=== PATIENT | male | born 1935 | race Caucasian/White ===

== ENCOUNTER 2017-08-15 15:49 | Inpatient (IN) | payer OTHER ==
[2017-08-15] VITALS (7 sets, daily range): BP systolic 157–204; BP diastolic 68–95
[~2017-08-15] VITALS: Ht 154.9 cm; Wt 63.3 kg
[~2017-08-15 15:49] MED LIST: AMLODIPINE BES2.5 MG PO; ASPIR-LOW81 MG PO; ATORVASTATIN CA10 MG PO; Advair 250/50 Diskus IH; Aspirin E.C. PO; BAYER CHILDREN'81 MG PO; CENTRUM SILVER1 EAC3 PO; CILOSTAZOL100 MG PO; CYANOCOBAL1000 MCG/2 IM; Dulera 200 mcg/5 mcg IH; IMDUR60 MG PO; IRON325 MG PO; LISINOPRIL10 MG PO; LOW DOSE ASPIRI81 M1 PO; LOW DOSE ASPIRI81 M2 PO; Levaquin PO; MECLIZINE HCL12.5 M1 PO; METOPROLOL SUCC25 MG PO; MULTIVITAMIN1 EAC2 PO; NORVASC2.5 MG PO; NORVASC5 MG PO; OMEPRAZOLE20 M2 PO; OMEPRAZOLE40 M1 PO; PRILOSEC OTC20 MG PO; SPIRIVA1 INHALATI IH; SYMBICORT60 INHALAT IH; TEKTURNA300 MG PO; Theragran PO; VITAMIN B12 IM; VITAMIN D31000 UNIT PO; [UNRECOGNIZED DRUG - CODE] IH
[2017-08-15 16:06] LABS: BASOPHIL (%) 0.7 % (0-1); BASOPHIL COUNT 0.1 K/uL (0-0.1); EOSINOPHIL (%) 4.3 % (0-5); EOSINOPHIL COUNT 0.4 K/uL (0-0.3); HEMOGLOBIN 12.8 G/DL (12.5-16.6); IMMATURE GRANULOCYTE (%) 0.6 % (0.0-0.7); LYMPHOCYTE (%) 14.4 % (15-42); LYMPHOCYTE COUNT 1.2 K/uL (1.0-2.8); MCHC 32.8 G/DL (30.0-36.0); MCV 91.5 FL (86-99); MONOCYTE (%) 8.4 % (3-12); MONOCYTE COUNT 0.7 K/uL (0-0.8); NEUTROPHIL (%) 71.6 % (45-76); NEUTROPHIL COUNT 6.1 K/uL (1.8-6.4); PLATELET COUNT 312 K/uL (156-360); RBC DIS.WIDTH-CV 17.2 % (11.8-14.6); RBC DIS.WIDTH-SD 57.6 % (39-53); RED BLOOD COUNT 4.26 M/uL (4.00-5.50); WHITE BLOOD COUNT 8.5 K/uL (4.1-10.2)
[2017-08-15 16:16] LABS: PTT 27.1 SEC (25-37)
[2017-08-15 16:17] LABS: AMYLASE 143 IU/L (1-118); CHLORIDE 104 mEq/L (99-109); POTASSIUM 4.2 mEq/L (3.7-5.4); SODIUM 141 mEq/L (136-147)
[2017-08-15 16:19] LABS: GLUCOSE 100 mg/dL (70-99)
[2017-08-15 16:22] LABS: SERUM ETHYL ALCOHOL < 10 mg/dL
[2017-08-15 16:23] LABS: CREATININE 1.7 mg/dL (0.6-1.3); GFR ESTIMATE (CALCULATED) 41 mL/min/ (58.99-99999)
[2017-08-15 16:24] LABS: UREA NITROGEN (BUN) 19 mg/dL (9-23)
[2017-08-15 16:26] LABS: LIPASE 37 U/L (1.0-51.0)
[2017-08-15 16:27] LABS: TROP-I INTERPRETATION NEGATIVE; TROPONIN-I < 0.01 ng/mL (0.0-0.30)
[2017-08-15] MEDS ORDERED: LIPITOR40 MG PO (19:19)
[2017-08-15] MEDS ORDERED: UNKNOWN INHALER PO (19:19)
[2017-08-15 19:42] LABS: HDL CHOLESTEROL 57 MG/DL (Desirable>=40); LDL CHOLESTEROL 112 mg/dL (Desirable<100); NON-HDL CHOLESTEROL 137 mg/dL (Desirable<160); TOTAL CHOLESTEROL 194 mg/dL (Desirable<200); TRIGLYCERIDES 125 MG/DL (Normal: <150)
[2017-08-15] MEDS ORDERED: RANITIDINE HCL150 M1 PO (21:46)
[2017-08-16] VITALS (23 sets, daily range): BP systolic 111–190; BP diastolic 66–94
[2017-08-16 08:30] LABS: HEMOGLOBIN A1c (GLYCOHEMOGLOB) 5.5 % (Below 5.7)
[2017-08-17] VITALS (16 sets, daily range): BP systolic 144–183; BP diastolic 57–79
[2017-08-17 10:27] LABS: BASOPHIL (%) 0.5 % (0-1); EOSINOPHIL (%) 2.4 % (0-5); EOSINOPHIL COUNT 0.2 K/uL (0-0.3); HEMATOCRIT 30.3 % (38.0-50.0); IMMATURE GRANULOCYTE (%) 0.5 % (0.0-0.7); LYMPHOCYTE (%) 12.7 % (15-42); MCH 29.4 PG (29.0-34.0); MCHC 31.4 G/DL (30.0-36.0); MCV 93.8 FL (86-99); MONOCYTE (%) 11.3 % (3-12); MONOCYTE COUNT 0.9 K/uL (0-0.8); NEUTROPHIL (%) 72.6 % (45-76); NEUTROPHIL COUNT 5.4 K/uL (1.8-6.4); PLATELET COUNT 238 K/uL (156-360); RBC DIS.WIDTH-CV 17.5 % (11.8-14.6); RBC DIS.WIDTH-SD 60.7 % (39-53); WHITE BLOOD COUNT 7.5 K/uL (4.1-10.2)
[2017-08-17 10:28] LABS: HEMOGLOBIN 9.5 G/DL (12.5-16.6); RED BLOOD COUNT 3.23 M/uL (4.00-5.50)
[2017-08-17 10:50] LABS: CHLORIDE 110 MEQ/L (99-109); CREATININE 1.5 MG/DL (0.6-1.3); GFR ESTIMATE (CALCULATED) 48 mL/min/ (58.99-99999); GLUCOSE 106 mg/dL (70-99); MAGNESIUM 1.9 mg/dl (1.3-2.7); PHOSPHORUS 2.9 mg/dL (2.5-4.9); POTASSIUM 3.9 MEQ/L (3.7-5.4); SODIUM 145 MEQ/L (136-147); UREA NITROGEN (BUN) 18 mg/dL (9-23)
[2017-08-18 01:00] VITALS: BP 189/81
[2017-08-18 04:36] VITALS: BP 170/81
[2017-08-18 06:51] LABS: BASOPHIL (%) 0.6 % (0-1); BASOPHIL COUNT 0.1 K/uL (0-0.1); EOSINOPHIL (%) 4.4 % (0-5); EOSINOPHIL COUNT 0.4 K/uL (0-0.3); HEMOGLOBIN 9.6 G/DL (12.5-16.6); IMMATURE GRANULOCYTE (%) 0.8 % (0.0-0.7); LYMPHOCYTE (%) 11.7 % (15-42); MCH 29.1 PG (29.0-34.0); MCV 93.9 FL (86-99); MONOCYTE (%) 13.3 % (3-12); MONOCYTE COUNT 1.2 K/uL (0-0.8); NEUTROPHIL (%) 69.2 % (45-76); PLATELET COUNT 243 K/uL (156-360); RBC DIS.WIDTH-CV 17.4 % (11.8-14.6); RBC DIS.WIDTH-SD 61.1 % (39-53); WHITE BLOOD COUNT 8.6 K/uL (4.1-10.2)
[2017-08-18 07:14] LABS: CHLORIDE 111 MEQ/L (99-109); CREATININE 1.4 MG/DL (0.6-1.3); GFR ESTIMATE (CALCULATED) 52 mL/min/ (58.99-99999); GLUCOSE 93 mg/dL (70-99); POTASSIUM 3.8 MEQ/L (3.7-5.4); SODIUM 143 MEQ/L (136-147); UREA NITROGEN (BUN) 15 mg/dL (9-23)
[2017-08-18 07:38] VITALS: BP 181/76
[2017-08-18 11:30] VITALS: BP 171/76
[2017-08-18 20:02] VITALS: BP 172/80
[2017-08-18 23:50] VITALS: BP 185/88
[2017-08-19 04:41] VITALS: BP 175/77
[2017-08-19 07:28] LABS: BASOPHIL (%) 0.6 % (0-1); BASOPHIL COUNT 0.1 K/uL (0-0.1); EOSINOPHIL (%) 5.2 % (0-5); EOSINOPHIL COUNT 0.6 K/uL (0-0.3); HEMATOCRIT 34.7 % (38.0-50.0); HEMOGLOBIN 11.2 G/DL (12.5-16.6); IMMATURE GRANULOCYTE (%) 0.5 % (0.0-0.7); LYMPHOCYTE (%) 9.6 % (15-42); MCH 29.9 PG (29.0-34.0); MCHC 32.3 G/DL (30.0-36.0); MCV 92.5 FL (86-99); MONOCYTE (%) 11.4 % (3-12); MONOCYTE COUNT 1.2 K/uL (0-0.8); NEUTROPHIL (%) 72.7 % (45-76); NEUTROPHIL COUNT 7.6 K/uL (1.8-6.4); PLATELET COUNT 298 K/uL (156-360); RBC DIS.WIDTH-CV 17.2 % (11.8-14.6); RBC DIS.WIDTH-SD 58.6 % (39-53); RED BLOOD COUNT 3.75 M/uL (4.00-5.50); WHITE BLOOD COUNT 10.5 K/uL (4.1-10.2)
[2017-08-19 07:53] LABS: CHLORIDE 106 MEQ/L (99-109); CREATININE 1.2 MG/DL (0.6-1.3); GFR ESTIMATE (CALCULATED) > 59 mL/min/ (58.99-99999); GLUCOSE 96 mg/dL (70-99); POTASSIUM 3.5 MEQ/L (3.7-5.4); SODIUM 139 MEQ/L (136-147); UREA NITROGEN (BUN) 12 mg/dL (9-23)
[2017-08-19 08:04] VITALS: BP 202/98
[2017-08-19 11:38] VITALS: BP 160/92
[2017-08-19 15:53] VITALS: BP 180/84
[2017-08-19 20:00] VITALS: BP 107/73
[2017-08-19 23:05] VITALS: BP 139/64
[2017-08-20] VITALS: BP 125/86
[2017-08-20 03:42] VITALS: BP 152/79
[2017-08-20 05:00] VITALS: BP 162/72
[2017-08-20 06:40] LABS: BASOPHIL (%) 0.6 % (0-1); BASOPHIL COUNT 0.1 K/uL (0-0.1); EOSINOPHIL (%) 5.1 % (0-5); EOSINOPHIL COUNT 0.4 K/uL (0-0.3); HEMATOCRIT 34.1 % (38.0-50.0); IMMATURE GRANULOCYTE (%) 0.6 % (0.0-0.7); LYMPHOCYTE (%) 12.4 % (15-42); MCHC 32.3 G/DL (30.0-36.0); MONOCYTE (%) 15.8 % (3-12); MONOCYTE COUNT 1.3 K/uL (0-0.8); NEUTROPHIL (%) 65.5 % (45-76); NEUTROPHIL COUNT 5.5 K/uL (1.8-6.4); PLATELET COUNT 315 K/uL (156-360); RBC DIS.WIDTH-CV 17.2 % (11.8-14.6); RED BLOOD COUNT 3.79 M/uL (4.00-5.50); WHITE BLOOD COUNT 8.3 K/uL (4.1-10.2)
[2017-08-20 06:54] LABS: CHLORIDE 100 MEQ/L (99-109); CREATININE 1.3 MG/DL (0.6-1.3); GFR ESTIMATE (CALCULATED) 56 mL/min/ (58.99-99999); GLUCOSE 103 mg/dL (70-99); POTASSIUM 3.3 MEQ/L (3.7-5.4); SODIUM 138 MEQ/L (136-147); UREA NITROGEN (BUN) 14 mg/dL (9-23)
[2017-08-20 07:50] VITALS: BP 106/59
[2017-08-20 11:05] VITALS: BP 175/81
[2017-08-20 19:59] VITALS: BP 160/64
[2017-08-21 00:22] VITALS: BP 151/81
[2017-08-21 03:58] VITALS: BP 168/70
[2017-08-21 06:13] LABS: BASOPHIL (%) 0.8 % (0-1); BASOPHIL COUNT 0.1 K/uL (0-0.1); EOSINOPHIL (%) 9.8 % (0-5); EOSINOPHIL COUNT 0.6 K/uL (0-0.3); HEMATOCRIT 33.2 % (38.0-50.0); HEMOGLOBIN 10.3 G/DL (12.5-16.6); IMMATURE GRANULOCYTE (%) 0.5 % (0.0-0.7); LYMPHOCYTE (%) 16.1 % (15-42); LYMPHOCYTE COUNT 1.1 K/uL (1.0-2.8); MCH 30.6 PG (29.0-34.0); MONOCYTE (%) 12.9 % (3-12); MONOCYTE COUNT 0.8 K/uL (0-0.8); NEUTROPHIL (%) 59.9 % (45-76); NEUTROPHIL COUNT 3.9 K/uL (1.8-6.4); RBC DIS.WIDTH-CV 17.2 % (11.8-14.6); RBC DIS.WIDTH-SD 61.8 % (39-53); RED BLOOD COUNT 3.37 M/uL (4.00-5.50); WHITE BLOOD COUNT 6.5 K/uL (4.1-10.2)
[2017-08-21 06:18] LABS: MCV 98.5 FL (86-99)
[2017-08-21 06:32] LABS: CHLORIDE 103 MEQ/L (99-109); CREATININE 1.3 MG/DL (0.6-1.3); GFR ESTIMATE (CALCULATED) 56 mL/min/ (58.99-99999); GLUCOSE 101 mg/dL (70-99); POTASSIUM 3.2 MEQ/L (3.7-5.4); SODIUM 138 MEQ/L (136-147); UREA NITROGEN (BUN) 14 mg/dL (9-23)
[2017-08-21 08:02] VITALS: BP 164/72
[2017-08-21 12:03] VITALS: BP 143/74
[2017-08-21 16:26] VITALS: BP 177/88
[2017-08-21 19:45] VITALS: BP 162/60
[2017-08-22] VITALS (7 sets, daily range): BP systolic 122–196; BP diastolic 65–91
[2017-08-22 06:48] LABS: BASOPHIL (%) 0.7 % (0-1); BASOPHIL COUNT 0.1 K/uL (0-0.1); EOSINOPHIL (%) 9.3 % (0-5); EOSINOPHIL COUNT 0.7 K/uL (0-0.3); HEMATOCRIT 33.1 % (38.0-50.0); HEMOGLOBIN 11.2 G/DL (12.5-16.6); IMMATURE GRANULOCYTE (%) 0.4 % (0.0-0.7); LYMPHOCYTE (%) 15.5 % (15-42); LYMPHOCYTE COUNT 1.1 K/uL (1.0-2.8); MCH 30.5 PG (29.0-34.0); MCHC 33.8 G/DL (30.0-36.0); MONOCYTE (%) 11.9 % (3-12); MONOCYTE COUNT 0.9 K/uL (0-0.8); NEUTROPHIL (%) 62.2 % (45-76); NEUTROPHIL COUNT 4.5 K/uL (1.8-6.4); PLATELET COUNT 372 K/uL (156-360); RBC DIS.WIDTH-CV 17.4 % (11.8-14.6); RBC DIS.WIDTH-SD 57.1 % (39-53); RED BLOOD COUNT 3.67 M/uL (4.00-5.50); WHITE BLOOD COUNT 7.2 K/uL (4.1-10.2)
[2017-08-22 07:04] LABS: MCV 90.2 FL (86-99)
[2017-08-22 07:14] LABS: CHLORIDE 103 MEQ/L (99-109); CREATININE 1.2 MG/DL (0.6-1.3); GFR ESTIMATE (CALCULATED) > 59 mL/min/ (58.99-99999); GLUCOSE 95 mg/dL (70-99); SODIUM 137 MEQ/L (136-147); UREA NITROGEN (BUN) 13 mg/dL (9-23)
[2017-08-22 07:15] LABS: POTASSIUM 4.4 MEQ/L (3.7-5.4)
[2017-08-23 04:21] VITALS: BP 129/60
[2017-08-23 08:05] VITALS: BP 166/86
[2017-08-23 13:53] VITALS: BP 157/79
[2017-08-23 16:10] VITALS: BP 175/79
[2017-08-24] VITALS: BP 166/71
[2017-08-24 08:11] VITALS: BP 158/74
[2017-08-24 15:48] VITALS: BP 157/70
[2017-08-25 00:07] VITALS: BP 170/72
== END 2017-08-25 01:16 | disposition short-term general hospital (02) | DRG 62 ==
LOC: EME 15:49 → 4WEST 17:43 → 5SOUTH 17:43 → EDOF 17:43 → ENRESERV 17:48 → 4WEST 19:48 → ENRESERV 08-17 15:13 → 5SOUTH 08-17 16:25 → ENRESERV 08-22 11:58 → 5SOUTH 08-22 12:17
PROVIDERS: Emergency Medicine Emergency Medical Services; Family Medicine; Internal Medicine Critical Care Medicine; Specialist
PROC: 3E03317 Introduction of Other Thrombolytic into Peripheral Vein, Percutaneous Approach (ICD-10-PCS; principal; 2017-08-15)
PROC: 0HQ1XZZ Repair Face Skin, External Approach (ICD-10-PCS; 2017-08-15)
DX: I63.511 Cerebral infarction due to unspecified occlusion or stenosis of right middle cerebral artery (principal); G81.94 Hemiplegia, unspecified affecting left nondominant side; R47.1 Dysarthria and anarthria; H51.8 Other specified disorders of binocular movement; S01.412A Laceration without foreign body of left cheek and temporomandibular area, initial encounter; S01.81XA Laceration without foreign body of other part of head, initial encounter; S00.12XA Contusion of left eyelid and periocular area, initial encounter; S00.11XA Contusion of right eyelid and periocular area, initial encounter; W18.30XA Fall on same level, unspecified, initial encounter; W22.8XXA Striking against or struck by other objects, initial encounter; Y92.009 Unspecified place in unspecified non-institutional (private) residence as the place of occurrence of the external cause; I65.23 Occlusion and stenosis of bilateral carotid arteries; E87.6 Hypokalemia; I12.9 Hypertensive chronic kidney disease with stage 1 through stage 4 chronic kidney disease, or unspecified chronic kidney disease; N18.3 Chronic kidney disease, stage 3 (moderate); J44.9 Chronic obstructive pulmonary disease, unspecified; I25.10 Atherosclerotic heart disease of native coronary artery without angina pectoris; E78.5 Hyperlipidemia, unspecified; I73.9 Peripheral vascular disease, unspecified; K55.1 Chronic vascular disorders of intestine; K21.9 Gastro-esophageal reflux disease without esophagitis; R29.709 NIHSS score 9; Z85.820 Personal history of malignant melanoma of skin; Z79.82 Long term (current) use of aspirin; Z91.14 Patient's other noncompliance with medication regimen; Z87.891 Personal history of nicotine dependence
CPT/HCPCS: 70450; 70496; 70498; 71046; 72125; 73030; 73090; 73110; 73130; 80048; 80061; 81003; 82150; 82948; 83036; 83690; 83735; 84100; 84484; 85025; 85610; 85730; 86850; 86900; 86901; 87641; 92507 GN; 92526 GN; 92610 GN; 93005; 93306; 93880; 94640; 94640 76; 94799; 97530 GO; 99202; 99281; 99285; G0480; G0515 GN; J1940; J2405; J2997; J3480; J7030